=== PATIENT | male | born 1990 | race Caucasian/White ===

== ENCOUNTER 2019-03-14 15:44 | Emergency (ER) | payer OTHER ==
[~2019-03-14] VITALS: Ht 172.7 cm; Wt 88.6 kg
[~2019-03-14 15:44] MED LIST: NO HOME MEDICATIONS
[2019-03-14 15:49] VITALS: BP 140/90; TEMP 98.4
[2019-03-14 16:56] VITALS: PULSE 72
== END 2019-03-14 16:57 | disposition home or self-care (01) ==
LOC: COL.ER 15:44
DX: S83.004A Unspecified dislocation of right patella, initial encounter (principal); Y93.6A Activity, physical games generally associated with school recess, summer camp and children; Y92.59 Other trade areas as the place of occurrence of the external cause
CPT/HCPCS: L1846